=== PATIENT | male | born 1950 | race Caucasian/White ===

== ENCOUNTER 2024-01-13 11:41 | Day surgery (SDC) | payer MEDICARE ==
[2024-01-13] MEDS: IV FLUID CONTINUATION 1,000 ML IV ONE ×2 (11:58→12:41)
[2024-01-13] MEDS: LACTATED RINGERS 1,000 ML IV SCH (11:59)
[2024-01-13 12:09] VITALS: TEMP 98.2
[2024-01-13 12:23] LABS: Glucose,Whole Blood 164 mg/dL (70-110)
[2024-01-13] MEDS ORDERED: PROPOFOL 10 MG/ML 20 ML VIAL IV ONE (12:42)
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
--- NOTE | 2024-01-13 13:02 | P.PCN ---
Date of Procedure: 01/13/24 Procedure(s) Performed: PREOPERATIVE DIAGNOSIS: Colon cancer screening POSTOPERATIVE DIAGNOSIS: Diverticulosis, cecal polyp, poor prep PROCEDURE: Colonoscopy with snare polypectomy ANESTHESIA: MAC SURGEON: Boby Thompson M.D. SPECIMENS: Polyp ENDOSCOPIC PROCEDURE: The patient was placed on the endoscopy table in the left decubitus position. The Olympus colonoscope was inserted into the anus and passed under direct visualization to the base of the cecum. The appendiceal orifice was visualized. From that point the scope was slowly withdrawn inspecting all surfaces carefully. There was noted to be a small sessile polyp at the cecal base. This was removed using the snare with cautery technique. The remainder of the ascending transverse descending sigmoid and rectum were free of any neoplastic inflammatory or polypoid lesions. The patient had retained liquid and solid stool primarily on the right side of the colon. There was mild left-sided diverticulosis present. Digital rectal examination was normal. The patient was taken to the recovery room in stable condition per anesthesia guidelines. RECOMMENDATIONS: Await biopsy results. Will recommend repeat short-term colonoscopy in 6 to 12 months pending pathology results.
[2024-01-13 13:26] VITALS: RESP 16
[2024-01-13 13:30] LABS: Glucose,Whole Blood 160 mg/dL (70-110)
[2024-01-13 13:32] VITALS: BP 135/63; PULSE 84
== END 2024-01-13 13:58 | disposition home or self-care (01) ==
LOC: ORWHC2ENDO 11:41
PROVIDERS: ATTEND Surgery
DX: Z12.11 Encounter for screening for malignant neoplasm of colon (principal); K63.5 Polyp of colon; E11.9 Type 2 diabetes mellitus without complications; I10 Essential (primary) hypertension; G47.33 Obstructive sleep apnea (adult) (pediatric); K57.30 Diverticulosis of large intestine without perforation or abscess without bleeding; K76.0 Fatty (change of) liver, not elsewhere classified; M19.90 Unspecified osteoarthritis, unspecified site; F12.90 Cannabis use, unspecified, uncomplicated; F17.200 Nicotine dependence, unspecified, uncomplicated; Z79.84 Long term (current) use of oral hypoglycemic drugs; Z86.010 Personal history of colon polyps; Z87.442 Personal history of urinary calculi
CPT/HCPCS: 88305; 45385; J2704